=== PATIENT | female | born 1965 | race Caucasian/White ===

== ENCOUNTER → 2023-09-08 07:02 | Outpatient (REF) | payer OTHER, SELFPAY ==
[2023-09-08 07:53] LABS: ALT (SGPT) 24 U/L (0-35); AST (SGOT) 28 U/L (14-36); Albumin 4.4 g/dl (3.5-5.0); Alkaline Phosphatase 92 U/L (38-126); Blood Urea Nitrogen 29 mg/dl (7-17); Calcium 9.9 mg/dl (8.4-10.2); Carbon Dioxide 26 mmol/L (22-30); Chloride 105 mmol/L (98-107); Glucose 117 mg/dl (70-99); HDL Cholesterol 98 mg/dl; LDL Cholesterol, Calculated 38 mg/dl; Potassium 4.9 mmol/L (3.5-5.1); Sodium 137 mmol/L (135-145); Total Bilirubin 0.6 mg/dl (0.2-1.3); Total Cholesterol 146 mg/dl (50-199); Total Protein 7.1 g/dl (6.3-8.2); Triglyceride 54 mg/dl (10-149); Very Low Density Lipoprotein 10 mg/dl (0-30); eGFR > 60.00
[2023-09-08 08:42] LABS: Microalbumin, Random Urine < 0.6 mg/dl (0.6-1.7)
[2023-09-08 10:34] LABS: Glycohemoglobin (HgbA1c) 8.6 % (4.0-5.6)
== END ==
LOC: REG 07:02
PROVIDERS: ATTENDING PHYSICIAN Internal Medicine Endocrinology, Diabetes & Metabolism; FAMILY PHYSICIAN Family Medicine
DX: E11.9 Type 2 diabetes mellitus without complications (principal)
CPT/HCPCS: 36415; 80053; 80061; 82043; 82570; 83036

== ENCOUNTER → 2023-10-10 15:05 | Outpatient (REF) | payer OTHER, SELFPAY | LOC: RAD 15:05 | PROVIDERS: ATTENDING PHYSICIAN Chiropractor; FAMILY PHYSICIAN Family Medicine | DX: M54.50 Low back pain, unspecified (principal) | CPT/HCPCS: 72110 ==

== ENCOUNTER → 2023-12-06 06:28 | Outpatient (REF) | payer OTHER, SELFPAY ==
[2023-12-06 08:31] LABS: ALT (SGPT) 29 U/L (0-35); AST (SGOT) 30 U/L (14-36); Albumin 4.5 g/dl (3.5-5.0); Alkaline Phosphatase 91 U/L (38-126); Blood Urea Nitrogen 25 mg/dl (7-17); Calcium 10.1 mg/dl (8.4-10.2); Carbon Dioxide 27 mmol/L (22-30); Chloride 106 mmol/L (98-107); Glucose 96 mg/dl (70-99); HDL Cholesterol 87 mg/dl; LDL Cholesterol, Calculated 50 mg/dl; Sodium 141 mmol/L (135-145); Total Bilirubin 0.5 mg/dl (0.2-1.3); Total Cholesterol 144 mg/dl (50-199); Total Protein 6.9 g/dl (6.3-8.2); Triglyceride 37 mg/dl (10-149); Very Low Density Lipoprotein 7 mg/dl (0-30); eGFR > 60.00
== END ==
LOC: REG 06:28
PROVIDERS: ATTENDING PHYSICIAN Internal Medicine Endocrinology, Diabetes & Metabolism; FAMILY PHYSICIAN Family Medicine
DX: E11.9 Type 2 diabetes mellitus without complications (principal)
CPT/HCPCS: 36415; 80053; 80061; 83036

== ENCOUNTER → 2024-03-12 11:41 | Outpatient (REF) | payer OTHER, SELFPAY ==
[2024-03-12 12:44] LABS: % Basophils 0.5 % (0-2); % Eosinophils 5.5 % (0-6); % Immature Granulocytes 0.3 % (0-0.5); % Lymphocytes 28.3 % (20.5-51.1); % Monocytes 7.2 % (1.7-9.3); % Neutrophils 58.2 % (42.2-75.2); Absolute Eosinophils 0.4 10^3/uL (0-0.7); Absolute Lymphocytes 2.1 10^3/uL (1.2-3.4); Absolute Monocytes 0.5 10^3/uL (0.1-0.6); Absolute Neutrophils 4.4 10^3/uL (1.4-6.5); Hematocrit 39.9 % (37.0-47.0); Hemoglobin 13.4 g/dL (12.0-16.0); Mean Corp Hgb Conc. 33.6 g/dL (33.0-37.0); Mean Corpuscular Hgb 30.9 pg (27.0-31.0); Mean Corpuscular Volume 91.9 fL (81.0-99.0); Mean Platelet Volume 11.2 fL (7.4-10.4); Nucleated Red Blood Cells % 0 %; Platelet Count 225 10^3/uL (130-400); Red Blood Cell Count 4.34 10^6/uL (4.20-5.40); Red Cell Dist. Width 12.2 % (11.5-14.5); White Blood Cell Count 7.5 10^3/uL (4.8-10.8)
[2024-03-12 13:10] LABS: Rheumatoid Agglutinin Less Than 10 IU (<10 IU)
[2024-03-12 13:28] LABS: Amylase 67 U/L (30-110); Creatine Phosphokinase 76 U/L (30-135); Lipase 118 U/L (23-300); Uric Acid 3.9 mg/dl (2.5-6.2)
[2024-03-12 13:46] LABS: TSH 0.52 uIU/ml (0.47-4.68)
[2024-03-13 14:57] LABS: Lyme Antibody Screen, EIA Negative (Negative)
[2024-03-14 16:02] LABS: CCP Antibody IgG/IgA 9 Units (0-19)
[2024-03-14 18:36] LABS: ANA, IgG Reflex to HEp-2 None Detected (None Detected)
== END ==
LOC: REG 11:41
PROVIDERS: ATTENDING PHYSICIAN Family Medicine
DX: R52 Pain, unspecified (principal); R11.0 Nausea; R53.83 Other fatigue; M25.50 Pain in unspecified joint
CPT/HCPCS: 36415; 82150; 82550; 83690; 84443; 84550; 85025; 86038; 86200; 86430; 86618

== ENCOUNTER → 2024-05-29 16:53 | Outpatient (REF) | payer OTHER, SELFPAY | LOC: WDC 16:53 | PROVIDERS: ATTENDING PHYSICIAN Family Medicine | DX: Z12.31 Encounter for screening mammogram for malignant neoplasm of breast (principal) | CPT/HCPCS: 77063; 77067 ==

== ENCOUNTER → 2024-06-23 06:30 | Outpatient (REF) | payer OTHER, SELFPAY ==
[2024-06-23 07:36] LABS: ALT (SGPT) 25 U/L (0-35); AST (SGOT) 29 U/L (14-36); Albumin 4.6 g/dl (3.5-5.0); Alkaline Phosphatase 90 U/L (38-126); Blood Urea Nitrogen 22 mg/dl (7-17); Calcium 9.2 mg/dl (8.4-10.2); Carbon Dioxide 28 mmol/L (22-30); Chloride 102 mmol/L (98-107); Glucose 123 mg/dl (70-99); Potassium 4.4 mmol/L (3.5-5.1); Sodium 139 mmol/L (135-145); Total Bilirubin 0.7 mg/dl (0.2-1.3); Total Protein 7.3 g/dl (6.3-8.2); eGFR > 60.00
[2024-06-23 10:36] LABS: Glycohemoglobin (HgbA1c) 7.5 % (4.0-5.6)
== END ==
LOC: REG 06:30
PROVIDERS: ATTENDING PHYSICIAN Internal Medicine Endocrinology, Diabetes & Metabolism; FAMILY PHYSICIAN Family Medicine
DX: E11.9 Type 2 diabetes mellitus without complications (principal)
CPT/HCPCS: 36415; 80053; 83036

== ENCOUNTER → 2024-11-05 09:33 | Outpatient (REF) | payer OTHER, SELFPAY | LOC: RCS 09:33 | PROVIDERS: ATTENDING PHYSICIAN Internal Medicine Cardiovascular Disease; FAMILY PHYSICIAN Family Medicine | DX: I25.10 Atherosclerotic heart disease of native coronary artery without angina pectoris (principal); R07.2 Precordial pain; R55 Syncope and collapse; I47.19 Other supraventricular tachycardia | CPT/HCPCS: 93017; 93306; 93350 ==

== ENCOUNTER → 2024-11-20 08:47 | Outpatient (REF) | payer OTHER, SELFPAY | LOC: PAVMRI 08:47 | PROVIDERS: ATTENDING PHYSICIAN Nurse Practitioner; FAMILY PHYSICIAN Family Medicine | DX: G43.719 Chronic migraine without aura, intractable, without status migrainosus (principal) | CPT/HCPCS: 70551 ==

== ENCOUNTER 2024-11-30 17:33 | Inpatient (IN) | payer OTHER, SELFPAY ==
[2024-11-30] VITALS (10 sets, daily range): BP systolic 88–112; BP diastolic 50–67; BMI 22.6; BMI 21.8
[2024-11-30 13:27] LABS: Hematocrit 38.0 % (37.0-47.0); Hemoglobin 13.1 g/dL (12.0-16.0); Mean Corp Hgb Conc. 34.5 g/dL (33.0-37.0); Mean Corpuscular Volume 93.6 fL (81.0-99.0); Nucleated Red Blood Cells % 0 %; Platelet Count 211 10^3/uL (130-400); Red Cell Dist. Width 13.6 % (11.5-14.5)
[2024-11-30 13:40] LABS: APTT 26.5 Sec (23.4-35.0); INR 0.92; PT 12.6 Sec (11.4-14.6)
[2024-11-30 13:49] LABS: ALT (SGPT) 22 U/L (0-35); AST (SGOT) 27 U/L (14-36); Albumin 4.4 g/dl (3.5-5.0); Alkaline Phosphatase 78 U/L (38-126); Blood Urea Nitrogen 19 mg/dl (7-17); Calcium 9.8 mg/dl (8.4-10.2); Carbon Dioxide 23 mmol/L (22-30); Chloride 108 mmol/L (98-107); Glucose 196 mg/dl (70-99); Potassium 4.1 mmol/L (3.5-5.1); Sodium 139 mmol/L (135-145); Total Protein 7.1 g/dl (6.3-8.2); eGFR > 60.00
[2024-11-30 14:01] LABS: Troponin I < 0.012 ng/ml
--- NOTE | 2024-11-30 14:31 | ED.GENMED ---
History of Present Illness
General
Chief Complaint: Breathing Problem
Source: patient and records
Exam Limitations: none
Time Seen by Provider: 11/30/24 13:46
Nursing documentation reviewed up to this point in time: agreed with
History of Present Illness
History of Present Illness:
59-year-old female CAD status post stenting followed by Dr. German about month of shortness of breath somewhat reminiscent of her prior angina initially with exertion at rest, mild chest pressure so Dr. German had a stress echo, started on Norvasc,
symptoms persist tried nitro without much relief no fevers mild cough
Past History
Past History
ED Past Medical History: CAD, HTN, IDDM (Patient is diet controlled but occasionally requires insulin) and Other (Myositis, being evaluated for MS.)
ED Past Surgical History: Cardiac (LAD stent) and Gynecological (Uterine ablation 4 years ago)
Social History
Tobacco: Non-smoker
Alcohol: Occasional
Drug: None
Personal:
Living: with family
Employment: Employed (Patient works in the cancer Center here)
Family History
Family History: Diabetes and Other (Noncontributory, patient's daughter has Crohn's disease.)
Review of Systems
Review of Systems
All Other Systems: Not applicable
EENT: Reports no symptoms
Respiratory: Reports cough and trouble breathing
Cardiac: Reports chest pain
ABD/GI: Reports no symptoms
: Reports no symptoms
Musculoskeletal: Reports no symptoms
Skin: Reports no symptoms
Phy Exam
Physical Exam
Physical Exam:
Physical Exam
General: no apparent distress, not acutely ill
Neck: No jaundice
Heart: s1/s2 regular rate and rhythm, no murmur. equal radial pulses.
Lungs: no acute respiratory distress. clear bilaterally
Abdomen: Nontender
Neuro: alert and oriented. no focal neurological deficits
Skin: no rash
Psychiatric: well kept. interactive and cooperative
Extremities: no edema. no calf tenderness.
Scores
Heart Failure Risk
Heart Failure Risk Score: Not Applicable
Heart Score for Chest Pain Patients
STEMI patient?: No
History: Moderately Suspicious
ECG: Nonspecific Repolarization
Age: >45 - <65 years
Risk Factors: >/= 3 Risk Factors or History of CAD
Troponin: </= Normal Limit
Heart Score for Chest Pain Patients: 5
Heart Score Risk: 20.3% MACE over next 6 weeks
Course
Orders/Labs/Results
Orders:
Orders
11/30/24 13:01
Electrocardiogram (*1) Urgent
Reason for Study: Shortness of Breath
EKG- Treatment ONCE
11/30/24 13:20
Complete Blood Count/With Diff Urgent
Comprehensive Metabolic Panel Urgent
D-Dimer Urgent
Comment: ADD ON
NT-proBNP Urgent
Comment: ADD ON
PTT Urgent
Prothrombin Time Urgent
Troponin I Urgent
11/30/24 14:19
Add On- LAB Urgent
Tests Added?: pBNP
Aspirin 325 mg PO NOW STA
CR Chest Portable - 1 View Urgent
Comment:
Reason For Exam: sob
Reason Study Needs to be Portable: Patient Unstable
11/30/24 14:28
Nitroglycerin Sublingual [Nitrostat (Sublingual)] 0.4 mg SL [id number] PRN
11/30/24 15:47
CARDIOLOGY CONSULT Urgent
Consulting Provider: Vik German
Was physician already notified: Yes
11/30/24 16:56
Add On- LAB Urgent
Tests Added?: d-dimer
Abnormal Lab Results
11/30/24
13:20
RBC 4.06 L 10^6/uL
(4.20-5.40)
MCH 32.3 H pg
(27.0-31.0)
MPV 11.3 H fL
(7.4-10.4)
Eosinophils % 9.7 H %
(0-6)
Chloride 108 H mmol/L
(98-107)
BUN 19 H mg/dl
(7-17)
Glucose 196 H mg/dl
(70-99)
11/30/24 13:20
11/30/24 13:20
Vital Signs
Initial and Last Documented VS:
Initial Vital Signs
Temp Pulse Resp BP Pulse Ox
98.3 F 64 16 105/55 99
11/30/24 13:07 11/30/24 13:07 11/30/24 13:07 11/30/24 13:07 11/30/24 13:07
Last Documented Vital Signs
Temp Pulse Resp BP Pulse Ox
98.3 F 63 21 93/52 97
11/30/24 13:07 11/30/24 15:30 11/30/24 15:30 11/30/24 15:21 11/30/24 15:30
MDM/Problems Addressed
Differential Diagnosis Includes:
ACS heart failure pneumonia noncardiac sources
MDM/Problems Addressed:
Shortness of breath
Chronic conditions affecting care: DM, HTN and CAD
Acute Exacerbation and/or Progression of Chronic Illness: DM and CAD
*Pulse Oximetry
SaO2: 99
Oxygen Mode of Delivery: Room air
Patient hypoxic: no
*EKG
Interpreted by ED Provider?: Yes
Interpretation: abnormal
Comparison EKG: no comparison EKG present
Heart Rate: 78
Rate: normal
Rhythm: sinus
Ischemia: non-specific ST changes
*Critical Care Note
Total Time (30-74mins, 75-104mins- exclusive of procedures): 12
Update Note
Update Note:
Will ask cardiology to see her, Dr. German is on-call today see patient's primary senior security analyst, will check proBNP and chest x-ray
4:20 PM reviewed with patient tells me she is good to be admitted for cath tomorrow
ED Attending Note
-
Portions of this chart may have been created with voice recognition software.� Occasional wrong word or��sound alike� substitutions may have occurred due to the inherent limitations of voice recognition software.
Discharge Plan
Departure
Patient Disposition: Admit
Date of Disposition: 11/30/24
Time of Disposition: 16:36
Admit to: IVU
Presentation/result/management discussed w/ accepting MD/DO: ANTHONY German
Patient with high blood pressure during this ER visit?: No
Condition: Good
Covid-19: Not Applicable
Discharge Problem:
ACS (acute coronary syndrome)
Prescriptions:
No Action
cetirizine 10 MG tablet
10 mg PO MOWEFR
insulin detemir U-100 [Levemir FlexTouch U100 Insulin] 300 UNIT/3 ML insulin pen
12 unit SC DAILY@1900
insulin aspart U-100 [Novolog U-100 Insulin aspart] 1,000 UNITS/10 ML solution
6 - 10 units SC PRN PRN (Reason: elevated blood sugar)
Patient Comments:
took 10 units
vitamin B complex-folic acid [Super B Maxi Complex] 0.4 MG tablet
1 cap PO DAILY
kr-xoo-oitjd-calcium carb-K1 [Women's 50 Plus Multivitamin] 1 EACH tablet
1 ea PO DAILY
metoprolol succinate [Toprol XL] 25 MG tablet extended release 24 hr
25 mg PO DAILY
aspirin 81 MG tablet,delayed release (DR/EC)
81 mg PO DAILY
atorvastatin 40 MG tablet
40 mg PO QPM Qty: 90 10RF
clopidogrel 75 MG tablet
75 mg PO DAILY Qty: 90 10RF
nitroglycerin 0.4 MG tablet, sublingual
0.4 mg sublingual [id number] PRN (Reason: chest pain) Qty: 25 5RF
metformin 1,000 MG tablet
1,000 mg PO BID Qty: 0 0RF
Rx Instructions:
Resume Sat 2/12 am
ondansetron 4 mg tablet,disintegrating
4 mg PO Q8H PRN (Reason: nausea and vomiting) Qty: 7 0RF
Referrals:
Christie Alamo MD [Family Provider, Family Practice]
Interventions
Interventions:
*Risk Screen - Suicide Last Done: 11/30/24 14:45
*General Assessment Last Done: 11/30/24 14:45
*Neglect/Abuse Screening Last Done: 11/30/24 14:47
*ED- Fall Risk Assessment Last Done: 11/30/24 14:45
*ED COVID-19 Vaccine History Last Done: 11/30/24 14:45
ED- Cardiac Assessment Last Done: 11/30/24 14:49
ED- Pulmonary Assessment Last Done: 11/30/24 14:49
Discharge Date and Time
Print Language: SYRIAC
[2024-11-30] MEDS: NITROSTAT (SUBLINGUAL) 0.4 MG SL (14:46)
--- NOTE | 2024-11-30 15:55 | CON.CAR ---
Addendum entered and electronically signed by Vik German MD 11/30/24 17:36:
This is the ADMISSION HISTORY AND PHYSICAL
I saw and examined the patient.
The resident's note was reviewed and I agree with the note.
Comment: Pt well known to me with known CAD, LAD stent in 2021, type II DM, with recurrent CP and dyspnea with progression despite adding a second antianginal medicine. Some atypical features.
Imp
ACS
Known CAD, LAD PCI/KATIE 2021
DM, type II
Migraines
Mixed hyperlipidemia
Plan
Add IV heparin
Check trop
Cath / possible PCI in AM
Original Note:
Consultation
Consultation Request
Date/Time Consultation Requested: 11/30/24 15:47
Date/Time Consultation Performed: 11/30/24 15:56
Requesting Provider: Dr. Tyler Jung
Performing Provider: Dr. Vik German
Reason for Consultation: Chest pain
Medical History
-
Chief Complaint: Chest pain
History of Present Illness:
59-year-old female past medical history of CAD status post stent LAD 2021, insulin-dependent type 2 diabetes, migraines, degenerative joint disease, syncope with phlebotomy, autoimmune recurrent hives, and kidney stone 1999 presents to the ED with
chest pain and weakness. On October 29, patient started to feel substernal chest pressure that worsened with exertion. She followed up with facility manager histology Dr. German on 11/03 and echo and stress echo were ordered. Echo 11/06/2559 to 65% ejection
fraction, no valvular disease. Stress echo METS 13 nonischemic with Abnormal ECG response to exercise, 1.[address] depression. Low to moderate risk stress test. Patient thought it might be due to stress related to planning her 60th birthday
alliance party, however after alliance party was over, substernal chest pressure remained. She describes the sensation as pressure in her chest, not pain. Nonradiating and feeling like someone is sitting on her chest. These episodes come and go lasting up to 2 to
3 hours. Today, patient felt incredibly weak while going up the stairs, short of breath while folding laundry which prompted her to come to the ED. She endorses heart palpitations as well. She denies nausea, vomiting, diarrhea, dysuria, episodes
of syncope.
In the ED blood pressure 105/55 (baseline runs low 90s/60s), heart rate 64, respiratory rate 16, afebrile satting well on room air. Elevated eosinophil count 9.7%, glucose 211, creatinine 0.7, troponin 0.012, LDL 50, HDL 87. Last hemoglobin A1c
7.5 on 07/15. She was given a sublingual nitroglycerin tab and ASA 325.
Past Medical History
Past Medical History: Other
Social History
Tobacco: Non-Smoker
Alcohol: Occasional
Drug: None
Personal:
Living: With Family
Employment: Employed
Family History
Family History: Other (Mom- HTN, lupus, multiple myeloma, daughter - crohns disease, sister - type 1 diabetes )
Allergies / Home Medications
Allergy/AdvReac Type Severity Reaction Status Date / Time
insulin glargine (From Allergy Hives Verified 11/30/24 13:10
Lantus)
�Medication �Instructions �Recorded �Confirmed �Type
cetirizine 10 mg tablet 10 mg PO MOWEFR 11/29/10 06/30/21 History
insulin detemir U-100 100 unit/mL 12 unit SC DAILY@1900 03/07/16 06/30/21 History
(3 mL) subcutaneous pen (Levemir
FlexTouch U-100 Insulin)
insulin aspart U-100 100 unit/mL 6 - 10 units SC PRN PRN elevated 06/21/21 06/30/21 History
subcutaneous solution (Novolog blood sugar
U-100 Insulin aspart)
ipidhuog-wxm-letoj ac 400 1 ea PO DAILY 06/21/21 06/30/21 History
mcg-calcium carb 500 mg-vit K1 20
mcg tablet (Women's 50 Plus
Multivitamin)
vitamin B complex-folic acid 0.4 1 cap PO DAILY 06/21/21 06/30/21 History
mg tablet (Super B Maxi Complex)
aspirin 81 mg tablet,delayed 81 mg PO DAILY 06/24/21 06/30/21 History
release
metoprolol succinate 25 mg 25 mg PO DAILY 06/24/21 06/30/21 History
tablet,extended release 24 hr
(Toprol XL)
atorvastatin 40 mg tablet 40 mg PO QPM #90 tabs 06/30/21 Rx
clopidogrel 75 mg tablet 75 mg PO DAILY #90 tabs 06/30/21 Rx
metformin 1,000 mg tablet 1,000 mg PO BID ##0 06/30/21 06/30/21 Rx
nitroglycerin 0.4 mg sublingual 0.4 mg sublingual [id number] PRN 06/30/21 Rx
tablet chest pain #25 tabs
ondansetron 4 mg disintegrating 4 mg PO Q8H PRN nausea and 11/15/22 Rx
tablet vomiting #7 tabs
Review of Systems
-
History Source: Patient
Constitutional: No Symptoms
EENT: No Symptoms
Respiratory: No Symptoms
Cardiac: Chest Pain (Chest pressure more than pain)
Abdomen/GI: No Symptoms
: No Symptoms
Neurological: No Symptoms
Physical Exam
Vital Signs
Temp Pulse Resp BP Pulse Ox
98.3 F 63 21 93/52 97
11/30/24 13:07 11/30/24 15:30 11/30/24 15:30 11/30/24 15:21 11/30/24 15:30
Lab Results
11/30/24 13:20
11/30/24 13:20
Troponin I < 0.012 ng/ml 11/30/24 13:20
Fff-K-Rnadzdkrjdm Pept 129 pg/ml 11/30/24 13:20
Physical Exam
General: No Apparent Distress and Comfortable
Respiratory: Clear
Cardiac: S1/S2 and Regular Rhythm
GI: Soft, Non Tender, Non Distended and Normal Bowel Sounds
Musculoskeletal: No Cyanosis and No Edema
Skin: Warm and Dry
Neuro: AO x 3
Psych: Calm
Impression / Plan
-
59-year-old female past medical history of CAD status post stent LAD 2021, insulin-dependent type 2 diabetes, migraines, degenerative joint disease, syncope with phlebotomy, autoimmune recurrent hives, and kidney stone 1999 presents to the ED with
chest pain and weakness. On October 29, patient started to feel substernal chest pressure that worsened with exertion. She followed up with facility manager histology Dr. German on 11/03 and echo and stress echo were ordered. Echo 11/06/2559 to 65% ejection
fraction, no valvular disease. Stress echo METS 13 nonischemic with Abnormal ECG response to exercise, 1.[address] depression. Low to moderate risk stress test. Patient thought it might be due to stress related to planning her 60th birthday
alliance party, however after alliance party was over, substernal chest pressure remained. She describes the sensation as pressure in her chest, not pain. Nonradiating and feeling like someone is sitting on her chest. These episodes come and go lasting up to 2 to
3 hours. Today, patient felt incredibly weak while going up the stairs, short of breath while folding laundry which prompted her to come to the ED. She endorses heart palpitations as well. She denies nausea, vomiting, diarrhea, dysuria, episodes
of syncope.
CAD s/p stent LAD 2021
Substernal chest pressure - some atypical symptoms we are going to treat her for acute coronary syndrome
-Now presents with ongoing anginal symptoms despite being on two anti-anginal medications and has had progressive symptoms
-Echo 11/06/2559 to 65% ejection fraction, no valvular disease. Stress echo METS 13 nonischemic with Abnormal ECG response to exercise, 1.[address] depression. Low to moderate risk stress test.
-Trend troponin and EKGs
-Check d-dimer
-Admit to IVU
-Plan for cath in am
-Start heparin drip
-NPO after midnight
-PRN nitro for pain
DM II
-HgA1c 7.5 07/15
-Continue home lantus 12 units daily
-SSI low resistance aspart per protocol
-Cont Jardiance (farxiga here)
-Metformin on hold for acute illness
Migraines
-Propranolol 40 BID
HTN
-Amlodipine 5 qd
HLD
-LDL 50, HDL 87 at goal <55
-Atorvastatin 40
Seasonal allergies
-Cetirizine 10mg as needed
DVT - on heparin
Full Code
[2024-11-30 17:15] LABS: D-Dimer < 0.27 ug/mlFEU (0.00-0.50)
[2024-11-30] MEDS: LIPITOR 40 MG PO (20:20)
[2024-11-30] MEDS: HEPARIN 3300 UNITS IV (20:20)
[2024-11-30] MEDS: HEPARIN 25000 UNITS/250 ML IV (20:22)
--- NOTE | 2024-11-30 20:43 | PTCARENOTE ---
Received patient from ED. SR on the monitor, HR in the 60s. VSS on room air. No chest pain at this time. Heparin started as per order, see JUL. Admission assessment completed. Oriented pt to room and educated pt on plan of care, pt verbalizes
understanding. NPO midnight. No complaints from pt at this time, call ag within reach.
[2024-11-30] MEDS: INDERAL 40 MG PO (21:03)
[2024-11-30 23:33] LABS: Glucose - Point of Care 45 mg/dl (70-99)
[2024-11-30] MEDS: TYLENOL 650 MG PO (23:37)
[2024-11-30 23:55] LABS: Glucose - Point of Care 68 mg/dl (70-99)
[2024-12-01] VITALS (13 sets, daily range): BP systolic 83–116; BP diastolic 53–96
[2024-12-01 00:05] LABS: Troponin I < 0.012 ng/ml
[2024-12-01 02:42] LABS: Glucose - Point of Care 98 mg/dl (70-99)
[2024-12-01 02:47] LABS: Hematocrit 36.1 % (37.0-47.0); Hemoglobin 12.3 g/dL (12.0-16.0); Mean Corp Hgb Conc. 34.1 g/dL (33.0-37.0); Mean Corpuscular Volume 94.3 fL (81.0-99.0); Platelet Count 202 10^3/uL (130-400); Red Cell Dist. Width 13.5 % (11.5-14.5)
[2024-12-01 02:59] LABS: INR 0.96; PT 13.1 Sec (11.4-14.6)
[2024-12-01 03:01] LABS: APTT 98.9 Sec (23.4-35.0)
[2024-12-01 03:12] LABS: Troponin I < 0.012 ng/ml
[2024-12-01 03:18] LABS: ALT (SGPT) 20 U/L (0-35); AST (SGOT) 25 U/L (14-36); Albumin 4.1 g/dl (3.5-5.0); Alkaline Phosphatase 85 U/L (38-126); Blood Urea Nitrogen 16 mg/dl (7-17); Calcium 9.5 mg/dl (8.4-10.2); Carbon Dioxide 25 mmol/L (22-30); Chloride 108 mmol/L (98-107); Estimated Creatinine Clearance 76 ml/min; Glucose 98 mg/dl (70-99); Magnesium 2.2 mg/dl (1.6-2.3); Potassium 4.3 mmol/L (3.5-5.1); Sodium 138 mmol/L (135-145); Total Protein 6.6 g/dl (6.3-8.2); eGFR > 60.00
[2024-12-01 05:05] LABS: Glucose - Point of Care 90 mg/dl (70-99)
[2024-12-01] MEDS: NOVOLOG FLEXPEN-LOW RESISTANCE SC (07:29)
[2024-12-01] MEDS: ASPIR LOW (ENTERIC COATED) 81 MG PO (07:29)
--- NOTE | 2024-12-01 07:50 | W.PN.CD ---
Today's Communication / Plan
-
orthodontic lab technician
Impression / Plan
-
59-year-old female past medical history of CAD status post stent LAD 2021, insulin-dependent type 2 diabetes, migraines, degenerative joint disease, syncope with phlebotomy, autoimmune recurrent hives, and kidney stone 1999 presents to the ED with
atypical symptoms consistent with ACS despite being on two anti-anginal medications and recent non-ischemic work up. Sending to laboratory technologist for further evaluation given prior stent in LAD 2021 and persistent symptoms.
CAD s/p stent LAD 2021
Substernal chest pressure - some atypical symptoms we are going to treat her for acute coronary syndrome
-Troponin x3 (-), EKG non-ischemic
-On heparin drip
-ASA 81
-NPO until after cath
-Going to orthodontic lab technician today
-PRN nitro for pain - propanolol and amlodipine from home meds also assisting for anginal symptoms
DM II
-HgA1c 7.5 07/15
-Continue home lantus 12 units daily
-SSI low resistance aspart per protocol
-Cont Jardiance (farxiga here)
-Metformin on hold for acute illness
Migraines
-Propranolol 40 BID
HTN
-BP with home meds runs around 90s/60s average
-Amlodipine 5 daily
-Propranolol 40 BID
HLD
-LDL 50, HDL 87 at goal <55
-Atorvastatin 40
Seasonal allergies
-Cetirizine 10mg as needed
DVT - on heparin
Full Code
Physical Exam
Vital Signs/Labs
Vital Signs
Temp Pulse Resp BP Pulse Ox
98.2 F 48 20 106/58 99
12/01/24 06:57 12/01/24 04:45 12/01/24 06:57 12/01/24 02:36 12/01/24 06:57
11/30/24 12/01/2425
06:59 06:59 06:59
Actual Weight 52.3 kg
12/01/24 02:39
12/01/24 02:39
PT 13.1 Sec (11.4-14.6) 12/01/24 02:38
INR 0.96 12/01/24 02:38
APTT 98.9 Sec (23.4-35.0) H 12/01/24 02:38
APTT Cancelled 12/01/24 02:38
Magnesium 2.2 mg/dl (1.6-2.3) 12/01/24 02:39
11/30/24
13:20
Tml-N-Kprgwdjjipz Pept 129
LAB Results
11/30/24 11/30/24 12/01/24
13:20 23:28 02:39
Troponin I < 0.012 < 0.012 < 0.012
12/01/24 12/01/24
11:00 17:00
Troponin I Cancelled Cancelled
Physical Exam
Constitutional: No acute distress and Comfortable
Cardiovascular: Rhythm & rate is regular, Pedal edema is absent and S1S2 is normal
Respiratory: Lungs clear to auscul.
GI: Soft, Distention absent, Non tender and Normal bowel sounds
Neuro/Psych: AO x 3
Data Reviewed
-
Date of Service: December 01, 2024
EKG: Tracing Personally Visualized and interpreted (EKG 12/01/24 SINUS BRADYCARDIA OTHERWISE NORMAL ECG)
Echo: Report Reviewed by me (11/05/2024 Normal biventricular size and systolic function without regional wall motion abnormality. No significant valvular disease.)
X-Ray/CT/US/MRI/NUC/PET: Image Personally Visualized and interpreted (Chest X-ray 11/30/24 No acute cardiopulmonary process.)
Labs: Labs Reviewed by me (Hg 12.3, Cr 0.6, BNP 129)
--- NOTE | 2024-12-01 08:28 | ITS.CL.PN ---
[facility] - Procedure Note
Procedure
Procedure Note:
CARDIAC CATHETERIZATION REPORT
Date of Procedure: 12/01/2024
Referring: Dr. Oscar German MD
Indication: anginal chest pain despite maximally tolerated medical therapy
PROCEDURE(S)
1. left heart catheterization
2. coronary angiography
ACCESS: 6F right radial artery (closure: radial band)
CATHETERS
1. 6F JR4
2. 6F JL3.5
MODERATE SEDATION: 25 minutes of moderate sedation was utilized. An independent medical advisor was present to assist with and help manage the patient's level of consciousness and physiologic status.
HEMODYNAMIC DATA
LV 95/10 (EDP 17) mmHg
AO 97/55 (mean 71) mmHg
CORONARY ANGIOGRAPHY
Dominance: right
LM: large, normal
LAD: Large vessel giving rise to moderate caliber D1 and small D2. There is a patent stent in the mid LAD jailing the D2. There is approximately 40-50% smooth narrowing between D1 and the proximal stent edge which is very slightly progressed
compared to prior angiography. There is mild ostial pinching of the jailed D2 with TIMI3 flow. There are otherwise trivial luminal irregularities only. There is no obstructive disease.
LCx: Large vessel giving rise to a small OM1, moderate caliber OM 2, small OM 3, small LPL 1, and several very small distal LPL branches. There are trivial luminal irregularities only.
RCA: Moderate caliber vessel giving rise to a small RPDA and small RPL branch. There are trivial luminal irregularities only
RADIATION: dose 139 mGy; DAP 6.7 Gy*cm2; fluoroscopy time 3.9 min
CONCLUSIONS
1. Nonobstructive coronary artery disease as described in a right dominant system
2. No aortic stenosis and mildly elevated LV filling pressure
RECOMMENDATIONS
1. Aggressive secondary prevention of coronary artery disease.
2. Workup for etiology of ANOCA.
Copy to: Dr. Oscar German MD (imaging clerk); Dr. Christie Alamo MD (PCP)
Signed: Yovani Juarez MD, PhD
--- NOTE | 2024-12-01 08:54 | W.PN.CD ---
Today's Communication / Plan
-
discharge on current meds
Impression / Plan
-
59-year-old female past medical history of CAD status post stent LAD 2021, insulin-dependent type 2 diabetes, migraines, degenerative joint disease, syncope with phlebotomy, autoimmune recurrent hives, and kidney stone 1999 presents to the ED with
atypical symptoms consistent with ACS despite being on two anti-anginal medications and recent non-ischemic work up. Sending to bed laborer for further evaluation given prior stent in LAD 2021 and persistent symptoms.
CAD s/p stent LAD 2021
Substernal chest pressure - some atypical symptoms we are going to treat her for acute coronary syndrome
-Troponin x3 (-), EKG non-ischemic
-ASA 81
-cath 12/01/2024 with non-obstructive CAD: patrigoberto prior LAD stent, mild proximal stent edge disease that is non-obstructive and non-significantly changed from prior cath
-stop heparin drip
-can consider further titration of meds as outpatient for possible MVD (addition of long acting nitrate though may be limited by BP), though possible symptoms are entirely non-cardiac
DM II
-HgA1c 7.5 07/15
-Continue home lantus 12 units daily
-SSI low resistance aspart per protocol
-Cont Jardiance (farxiga here)
-Metformin on hold for acute illness
Migraines
-Propranolol 40 BID
HTN
-BP with home meds runs around 90s/60s average
-Amlodipine 5 daily
-Propranolol 40 BID
HLD
-LDL 50, HDL 87 at goal <55
-Atorvastatin 40
Seasonal allergies
-Cetirizine 10mg as needed
DVT - on heparin
Full Code
Physical Exam
Vital Signs/Labs
Vital Signs
Temp Pulse Resp BP Pulse Ox
36.8 C 48 20 106/58 99
12/01/24 06:57 12/01/24 04:45 12/01/24 06:57 12/01/24 02:36 12/01/24 06:57
11/30/24 12/01/24 12/02/24
06:59 06:59 06:59
Actual Weight 52.3 kg
12/01/24 02:39
12/01/24 02:39
PT 13.1 Sec (11.4-14.6) 12/01/24 02:38
INR 0.96 12/01/24 02:38
APTT 98.9 Sec (23.4-35.0) H 12/01/24 02:38
APTT Cancelled 12/01/24 02:38
Magnesium 2.2 mg/dl (1.6-2.3) 12/01/24 02:39
11/30/24
13:20
Xqc-C-Ndsldqkjqpm Pept 129
LAB Results
11/30/24 11/30/24 12/01/24
13:20 23:28 02:39
Troponin I < 0.012 < 0.012 < 0.012
12/01/24 12/01/24
11:00 17:00
Troponin I Cancelled Cancelled
Physical Exam
Constitutional: Comfortable
Cardiovascular: Rhythm & rate is regular
Respiratory: Respiratory effort normal
Neuro/Psych: AO x 3
Data Reviewed
-
Date of Service: December 01, 2024
Medical Decision Making: Reviewed Test Results
Labs: Labs Reviewed by me
--- NOTE | 2024-12-01 09:12 | PTCARENOTE ---
received patient this am in bed with IV heparin @ 800 units/hr. patient remains NPO.
track laborer called, report given, patient just returned from track laborer with right R band intact, distal pulse palpable. no intervention. patient is awake but lethargic due to sedation. IV NSS @ 78cc/hr. encouraged patient to rest. post cath instructions
given to patient and she understands. call ag within reach.
--- NOTE | 2024-12-01 11:01 | W.DCSUMMARY ---
Discharge Summary
Discharge Data
Date of Admission: 11/30/24
Date of Discharge: 12/01/24
-
Pending Results: No
Hospital Course
Primary diagnosis:
Acute coronary Syndrome
Coronary artery disease
Secondary Diagnosis:
Type II diabetes
Migraines
Mixed hyperlipidemia
Seasonal allergies
Hospital Course:
59-year-old female past medical history of CAD status post stent LAD 2021, insulin-dependent type 2 diabetes, migraines, degenerative joint disease, syncope with phlebotomy, autoimmune recurrent hives, and kidney stone 1999 presents to the ED with
chest pain and weakness. On October 29, patient started to feel substernal chest pressure that worsened with exertion. She followed up with printer machine Dr. German on 11/03 and echo and stress echo were ordered. Echo 11/06/2559 to 65% ejection
fraction, no valvular disease. Stress echo METS 13 nonischemic with Abnormal ECG response to exercise, 1.[address] depression. Low to moderate risk stress test. Patient thought it might be due to stress related to planning her 60th birthday
republican, however after republican was over, substernal chest pressure remained. She came into the ED for ongoing symptoms. EKG was non-ischemic and troponin (-), however considering she was already on two anti-anginal meds (propranolol and amlodipine) and
continued to have anginal symptoms with known CAD history, patient was admitted and scheduled for a cardiac cath. Cardiac cath results revealed non-obstructive CAD.
Today, she is stable for discharge with instructions to follow up with cardiology for continued medical management.
Discharge Plan
-
Patient Disposition: Home (Routine Discharge)
Discharge Diagnosis/Procedures: Chest pain
Procedure: Cardiac catheterization 12/01/2024
Condition: Good
Diet: Low Cholesterol and Diabetic, Carb Controlled
Activity: No strenuous activity
Additional Activity: See attached instructions.
Driving Restrictions: No driving for 24 hours
Bathing Restrictions: None
Stand Alone Forms: DC Instructions- Cath/EP Lab
Referrals:
Dacier,Christie M., MD [Family Provider, Family Practice]
Vik German MD [Active, Cardiology] - 12/30/24 2:20 pm
Additional Discharge Medication Instructions: HOLD metformin post catheterization. May resume on 12/03/24 in AM.
Prescriptions:
Continued
cetirizine 10 MG tablet
10 mg PO MOWEFR
insulin aspart U-100 [Novolog U-100 Insulin aspart] 1,000 UNITS/10 ML solution
6 - 30 units SC PRN PRN (Reason: elevated blood sugar)
Patient Comments:
11/30/24 took 6 units
vitamin B complex-folic acid [Super B Maxi Complex] 0.4 MG tablet
1 cap PO DAILY
Women's 50 Plus Multivitamin 1 EACH tablet
1 ea PO DAILY
aspirin 81 MG tablet,delayed release (DR/EC)
81 mg PO DAILY
atorvastatin 40 MG tablet
40 mg PO QPM Qty: 90 10RF
nitroglycerin 0.4 MG tablet, sublingual
0.4 mg sublingual [id number] PRN (Reason: chest pain) Qty: 25 5RF
ondansetron 4 mg tablet,disintegrating
4 mg PO Q8H PRN (Reason: nausea and vomiting) Qty: 7 0RF
eyydtxxddd-rxffwvbavluat-tfan 50-325-40 mg capsule
1 cap PO Q4HPRN PRN (Reason: migraine)
amlodipine 5 mg tablet
5 mg PO DAILY
valacyclovir 500 mg tablet
500 mg PO DAILYPRN PRN (Reason: COLD SORE)
propranolol 40 mg tablet
40 mg PO BID
coenzyme Q10 [CoQ-10] 100 mg Capsule
100 mg PO QPM
insulin detemir U-100 100 unit/mL (3 mL) insulin pen
12 unit SC DAILY@1900
Jardiance 10 mg tablet
10 mg PO DAILY
Neuriva Original 100-100 mg Capsule
1 cap PO DAILY
ashwagandha extract 120 mg Capsule
120 mg PO QPM
Veozah 45 mg tablet
45 mg PO DAILY
berberine chloride 500 mg Capsule
500 mg PO DAILY
Held
metformin 1,000 MG tablet
1,000 mg PO BID Qty: 0 0RF
Hold Instructions: Resume on 12/03/24. Resume 12/03 am
Discharge Date and Time
Print Language: OCCITAN
[2024-12-01] MEDS: ZOFRAN 4 MG IV (11:08)
[2024-12-01 11:09] LABS: Glucose - Point of Care 103 mg/dl (70-99)
[2024-12-01] MEDS: FLUSH (NSS) 1 FLUSH IV (11:09)
[2024-12-01] MEDS: TYLENOL 650 MG PO (11:10)
[2024-12-01] MEDS: FARXIGA 10 MG PO (11:11)
[2024-12-01] MEDS: NORVASC 5 MG PO (11:11)
[2024-12-01] MEDS: INDERAL 40 MG PO (11:11)
--- NOTE | 2024-12-01 11:21 | PTCARENOTE ---
was unable to take out air in R band due to oozing. 1100 started to take out air with no problems. patient c/o feeling nausea and right wrist pain, TT Raquel Dodge [employer] TECH[employer]ICIAN ordered Zofran, given as ordered and Tylenol for the pain.
--- NOTE | 2024-12-01 11:59 | CM ---
Reviewed chart. Met with Mrs. Mccullough to review discharge plans. She states prior to admission she resides with her spouse in a one story home with two steps to enter. She states prior to admission she was independent with ambulation and adls. She
states she does not have any DME in the home. She states she has a prescription plan and uses [facility]. Medical work-up in progress. The discharge plan is to return home with her spouse when medically stable.
[2024-12-01 12:13] LABS: Glucose - Point of Care 302 mg/dl (70-99)
[2024-12-01] MEDS: NOVOLOG FLEXPEN-LOW RESISTANCE 4 UNITS SC (13:18)
--- NOTE | 2024-12-01 14:43 | PTCARENOTE ---
R band has been off, dsg. D/I , distal pulse palpable. nausea and pain in right arm from cath site resolved.
--- NOTE | 2024-12-01 16:27 | PTCARENOTE ---
D/C instructions given to patient, verbalizes understanding. INT D/C'd, telemetry D/C'd. personal belongings packed and sent home with patient. D/C to home via wc accompanied by vol. services.
== END 2024-12-01 16:29 | disposition home or self-care (01) | DRG 287 ==
LOC: IVU 17:33
PROVIDERS: Student in an Organized Health Care Education/Training Program; ADMITTING PHYSICIAN Internal Medicine Cardiovascular Disease; EMERGENCY PHYSICIAN Emergency Medicine; FAMILY PHYSICIAN Family Medicine
PROC: B2151ZZ Fluoroscopy of Left Heart using Low Osmolar Contrast (ICD-10-PCS; 2024-12-01)
PROC: 4A023N7 Measurement of Cardiac Sampling and Pressure, Left Heart, Percutaneous Approach (ICD-10-PCS; 2024-12-01)
PROC: B2111ZZ Fluoroscopy of Multiple Coronary Arteries using Low Osmolar Contrast (ICD-10-PCS; 2024-12-01)
DX: I25.118 Atherosclerotic heart disease of native coronary artery with other forms of angina pectoris (principal); I24.9 Acute ischemic heart disease, unspecified; I10 Essential (primary) hypertension; E11.9 Type 2 diabetes mellitus without complications; M60.9 Myositis, unspecified; E78.2 Mixed hyperlipidemia; G43.909 Migraine, unspecified, not intractable, without status migrainosus; J30.2 Other seasonal allergic rhinitis; Z79.02 Long term (current) use of antithrombotics/antiplatelets; Z79.4 Long term (current) use of insulin; Z79.82 Long term (current) use of aspirin; Z79.899 Other long term (current) drug therapy; Z95.5 Presence of coronary angioplasty implant and graft; Z82.49 Family history of ischemic heart disease and other diseases of the circulatory system
CPT/HCPCS: 71045; 80053; 82962; 83735; 83880; 84484; 85025; 85027; 85379; 85610; 85730; 93005; 93458; 99152; 99153; 99285; C1769; C1894; Q9967

== ENCOUNTER → 2025-05-08 07:12 | Outpatient (REF) | payer OTHER, SELFPAY | LOC: RAD 07:12 | PROVIDERS: ATTENDING PHYSICIAN Family Medicine | DX: R05.9 Cough, unspecified (principal); R06.02 Shortness of breath | CPT/HCPCS: 71046 ==